=== PATIENT | female | born 1980 | race Caucasian/White ===

== ENCOUNTER 2018-05-26 09:01 | Day surgery (SDC) | payer BC ==
[~2018-05-26] VITALS: Ht 165.1 cm; Wt 104.3 kg
[~2018-05-26 09:01] MED LIST: ACIPHEX20 MG PO; AMOXICILLIN875 MG PO; ATIVAN1 MG PO; AZITHROMYCIN250 MG PO; CELEXA20 MG PO; CIPRODEX1 ML AD; DOXYCYCLINE HY100 MG PO; EFFEXOR37.5 MG PO; LOPRESSOR50 MG PO; METOPROLOL25 M1 PO; NAPROSYN500 MG PO; NO CURRENT MEDS; PRENATAL; UNK BIRTH CONTROL; ZANTAC 150 MAX150 MG PO; ZANTAC150 M1 PO; ZPAK PO
[2018-05-26 11:31] VITALS: BP 117/69
== END 2018-05-26 11:47 | disposition home or self-care (01) | DRG 379 ==
LOC: ENDO 09:01 → ORM 15:30
PROVIDERS: ATTEND Internal Medicine Gastroenterology
PROC: 0DB98ZX Excision of Duodenum, Via Natural or Artificial Opening Endoscopic, Diagnostic (ICD-10-PCS; principal; 2018-05-26)
PROC: 0DB78ZX Excision of Stomach, Pylorus, Via Natural or Artificial Opening Endoscopic, Diagnostic (ICD-10-PCS; 2018-05-26)
PROC: 0DBE8ZX Excision of Large Intestine, Via Natural or Artificial Opening Endoscopic, Diagnostic (ICD-10-PCS; 2018-05-26)
DX: K29.51 Unspecified chronic gastritis with bleeding (principal); K57.31 Diverticulosis of large intestine without perforation or abscess with bleeding; K64.4 Residual hemorrhoidal skin tags; K64.8 Other hemorrhoids; I10 Essential (primary) hypertension; Z80.0 Family history of malignant neoplasm of digestive organs; Z86.010 Personal history of colon polyps